=== PATIENT | female | born 1965 | race American Indian/Alaskan Native ===

== ENCOUNTER 2017-11-10 05:11 | Inpatient (IN) | payer OTHER ==
--- NOTE | 2017-11-10 05:21 | C.PDOC ---
History Of Present Illness Patient presents to the ER with EMS agitated and combative. Patient states she did 25 bags of heroin yesterday but none today. Patient had to be medicated for her safety and safety of staff. No further Hx could be obtained. Time Seen by Provider: 11/10/17 05:21 Chief Complaint (Nursing): Substance Abuse History Per: Patient, EMS History/Exam Limitations: clinical condition Onset/Duration Of Symptoms: Hrs Current Symptoms Are (Timing): Still Present Suicide/Self Injury Attempted (Context): None Associated Symptoms: Anger, Agitation, Other (Combative). denies: Depression, Suicidal Thoughts, Suicidal Plan Involuntary Hold By: None Recent travel outside of the [place]: No Past Medical History Reviewed: Historical Data, Nursing Documentation, Vital Signs Vital Signs: Last Vital Signs Temp 98.0 F 11/10/17 05:17 Pulse 54 L 11/10/17 05:17 Resp 19 11/10/17 05:17 BP 190/103 H 11/10/17 05:17 Pulse Ox 98 11/10/17 05:37 - Medical History PMH: No Chronic Diseases Family History: States: No Known Family Hx Review Of Systems Review Of Systems: ROS cannot be obtained secondary to pt's inabilty to answer questions. Physical Exam - Physical Exam Appears: Non-toxic, Combative, Other (Agitated) Skin: Warm, Dry Head: Normacephalic Oral Mucosa: Moist Teeth: Edentulous Chest: Symmetrical, No Tenderness Cardiovascular: Rhythm Regular Respiratory: No Rales, No Rhonchi, No Wheezing Gastrointestinal/Abdominal: Soft, No Tenderness Neurological/Psych: Oriented x3 ED Course And Treatment - Laboratory Results Result Diagrams: 11/10/17 05:43 11/10/17 05:43 O2 Sat by Pulse Oximetry: 98 Pulse Ox Interpretation: Normal Progress Note: Patient medicated for her safety as well as the safety of the ED staff. Pt noticed to self induce vomiting Disposition Counseled Patient/Family Regarding: Studies Performed, Diagnosis - Disposition Disposition Time: 05:21 Condition: UNKNOWN Forms: [facility] (Sami) - Clinical Impression Clinical Impression: Drug abuse - Scribe Statement The provider has reviewed the documentation as recorded by the Scribe Stevie Espinal All medical record entries made by the Scribe were at my direction and personally dictated by me. I have reviewed the chart and agree that the record accurately reflects my personal performance of the history, physical exam, medical decision making, and the department course for this patient. I have also personally directed, reviewed, and agree with the discharge instructions and disposition. Physician Patient Turnover Patient Signed Over To: Eligio Montoya DO Handoff Comments: pending labs, re-eval and disposition
[2017-11-10] MEDS ORDERED: DiphenhydrAMINE 50 mg/ml Inj ONE (05:22)
[2017-11-10] MEDS ORDERED: DiphenhydrAMINE 50 mg/ml Inj IM STA (05:32)
[2017-11-10 05:46] LABS: BASO % 0.4 % (0.0-2.0); EOS # 0.1 K/uL (0.0-0.7); EOS % 0.8 % (0.0-4.0); LYMPH # 1.5 K/uL (1.0-4.3); LYMPH % 17.6 % (20.0-40.0); MEAN CELL VOLUME 93.1 fL (81.0-99.0); MEAN CORPUSCULAR HEMOGLOBIN 31.8 pg (27.0-31.0); MEAN CORPUSCULAR HGB CONC 34.1 g/dL (33.0-37.0); MEAN PLATELET VOLUME 8.7 fL (7.2-11.7); MONO # 0.2 K/uL (0.0-0.8); MONO % 2.2 % (0.0-10.0); NEUT # 6.6 K/uL (1.8-7.0); RBC 5.04 Mil/uL (3.80-5.20); WHITE BLOOD COUNT 8.4 K/uL (4.8-10.8)
[2017-11-10 06:15] LABS: ALBUMIN 4.1 g/dL (3.5-5.0); CALCIUM 8.6 mg/dl (8.6-10.4); GFR AFRICAN-AMERICAN > 60; GFR NON-AFRICAN AMERICAN 58
[2017-11-10 06:30] LABS: ALT/SGPT 13 U/L (9-52); AST/SGOT 41 U/L (14-36); BLOOD UREA NITROGEN 12 mg/dL (7-17)
[2017-11-10] MEDS ORDERED: Sodium Chloride 0.9% 1,000 ML IV ONE (06:44)
[2017-11-10] MEDS ORDERED: Sodium Chloride 0.9% 1,000 ML ONE (06:47)
[2017-11-10 07:44] LABS: BARBITURATES, UR NEGATIVE (NEGATIVE); BENZODIAZEPINES, UR NEGATIVE (NEGATIVE); PHENCYCLIDINE, UR NEGATIVE (NEGATIVE)
[2017-11-10 08:01] LABS: SQUAMOUS EPITHIAL 1 /hpf (0-5); URINE AMORPHOUS SEDIMENT RARE /ul (<OCC); URINE BACTERIA OCC (<OCC); URINE BILIRUBIN NEGATIVE (NEGATIVE); URINE BLOOD NEGATIVE (NEGATIVE); URINE CLARITY Hazy (Clear); URINE COLOR Yellow (YELLOW); URINE GLUCOSE (UA) 1+ mg/dL (Normal); URINE LEUKOCYTE ESTERASE NEG Leu/uL (Negative); URINE NITRATE NEGATIVE (NEGATIVE); URINE PROTEIN 2+ mg/dL (NEGATIVE); URINE UROBILINOGEN NORMAL mg/dL (0.2-1.0)
[2017-11-10 08:10] LABS: OPIATES, UR POSITIVE (NEGATIVE)
--- NOTE | 2017-11-10 09:18 | CP.PCM.HP ---
<Inez Yeung - Last Filed: 11/10/17 12:56> History of Present Illness - History of Present Illness History of Present Illness: Patient is a 51 year old female with past medical history of substance abuse, questionable seizure d/o was brought to the ER for evaluation. Per ED triage note, patient took 25 bags of heroin yesterday and is currently withdrawing. When patient was seen in the ER she was agitated/yelling, at times tearful, and not answering questions appropriately. Patient was uncooperative, states that she is seeing monsters. Per nursing, while in the ED, patient had 2 episodes of NBNB vomiting. HPI and ROS not obtained at this time. We have no prior records of this patient in the EMR. ED course: Geodon 10mg, Benadryl 25mg IM, Ativan 2mg IVP x 2, Reglan 10mg IVP, Zofran 4mg IVP, Clonidine 0.1mg x 1, Methadone 20mg, NS bolus Allergies: Unobtainable Medical History: Questionable history of seizure disorder Medications: States that she takes Dilantin 300mg daily, patient unable to provide us with her pharmacy Surgical History: Unobtainable Social History: Heroin user (snorts and injects), last use was yesterday, used 25 bags, Denies alcohol/tobacco use; possibly homeless? Family History: Unobtainable Present on Admission - Present on Admission Any Indicators Present on Admission: No Review of Systems - Review of Systems Review of Systems: Unable to obtain due to patients current condition Past Patient History - Infectious Disease Hx of Infectious Diseases: None - Past Social History Smoking Status: Unknown If Ever Smoked - PSYCHIATRIC Hx Substance Use: Yes - SURGICAL HISTORY Hx Surgeries: (UNOBTAINABLE) Meds Allergies/Adverse Reactions: Allergies Allergy/AdvReac Type Severity Reaction Status Date / Time Unobtainable Allergy Verified 11/10/17 05:22 Physical Exam - Constitutional Appears: Older Than Stated Age, Agitated, Confused - Head Exam Head Exam: ATRAUMATIC, NORMAL INSPECTION - Eye Exam Eye Exam: EOMI, Normal appearance - Respiratory Exam Respiratory Exam: Clear to Auscultation Bilateral, NORMAL BREATHING PATTERN. absent: Rhonchi, Wheezes - Cardiovascular Exam Cardiovascular Exam: REGULAR RHYTHM, +S1, +S2. absent: Systolic Murmur - GI/Abdominal Exam GI & Abdominal Exam: Normal Bowel Sounds, Soft. absent: Guarding, Rebound, Rigid, Tenderness - Extremities Exam Extremities exam: Positive for: normal inspection, pedal pulses present. Negative for: calf tenderness - Neurological Exam Neurological exam: Alert - Psychiatric Exam Psychiatric exam: Agitated, Anxious, Manic - Skin Skin Exam: Dry, Normal Color, Warm Results - Vital Signs Recent Vital Signs: Last Vital Signs Temp 98.0 F 11/10/17 05:17 Pulse 89 11/10/17 09:13 Resp 14 11/10/17 09:13 BP 193/116 H 11/10/17 09:13 Pulse Ox 97 11/10/17 09:13 - Labs Result Diagrams: 11/10/17 05:43 11/10/17 05:43 Labs: Laboratory Results - last 24 hr 11/10/17 11/10/17 11/10/17 05:43 05:43 07:24 WBC 8.4 RBC 5.04 Hgb 16.0 Hct 46.9 MCV 93.1 MCH 31.8 H MCHC 34.1 RDW 14.0 Plt Count 234 MPV 8.7 Neut % (Auto) 79.0 H Lymph % (Auto) 17.6 L [place] % (Auto) 2.2 Eos % (Auto) 0.8 Baso % (Auto) 0.4 Neut # 6.6 Lymph # 1.5 [place] # 0.2 Eos # 0.1 Baso # 0.0 Sodium 138 Potassium 4.6 Chloride 109 H Carbon Dioxide 21 L Anion Gap 13 BUN 12 Creatinine 1.0 Est GFR ( Amer) > 60 Est GFR (Non-Af Amer) 58 Random Glucose 164 H Calcium 8.6 Total Bilirubin 0.8 AST 41 H ALT 13 Alkaline Phosphatase 95 Total Protein 8.2 Albumin 4.1 Globulin 4.1 H Albumin/Globulin Ratio 1.0 Urine Color Yellow Urine Clarity Hazy Urine pH 8.0 Ur Specific Enigma 1.021 Urine Protein 2+ H Urine Glucose (UA) 1+ Urine Ketones Negative Urine Blood Negative Urine Nitrate Negative Urine Bilirubin Negative Urine Urobilinogen Normal Ur Leukocyte Esterase Neg Urine WBC (Auto) 4 Urine RBC (Auto) 8 H Ur Squamous Epith Cells 1 Amorphous Sediment Rare H Urine Bacteria Occ H Urine Opiates Screen Urine Methadone Screen Ur Barbiturates Screen Ur Phencyclidine Scrn Ur Amphetamines Screen U Benzodiazepines Scrn U Oth Cocaine Metabols U Cannabinoids Screen Alcohol, Quantitative < 10 11/10/17 07:24 WBC RBC Hgb Hct MCV MCH MCHC RDW Plt Count MPV Neut % (Auto) Lymph % (Auto) [place] % (Auto) Eos % (Auto) Baso % (Auto) Neut # Lymph # [place] # Eos # Baso # Sodium Potassium Chloride Carbon Dioxide Anion Gap BUN Creatinine Est GFR ( Amer) Est GFR (Non-Af Amer) Random Glucose Calcium Total Bilirubin AST ALT Alkaline Phosphatase Total Protein Albumin Globulin Albumin/Globulin Ratio Urine Color Urine Clarity Urine pH Ur Specific Enigma Urine Protein Urine Glucose (UA) Urine Ketones Urine Blood Urine Nitrate Urine Bilirubin Urine Urobilinogen Ur Leukocyte Esterase Urine WBC (Auto) Urine RBC (Auto) Ur Squamous Epith Cells Amorphous Sediment Urine Bacteria Urine Opiates Screen Positive H Urine Methadone Screen Negative Ur Barbiturates Screen Negative Ur Phencyclidine Scrn Negative Ur Amphetamines Screen Negative U Benzodiazepines Scrn Negative U Oth Cocaine Metabols Negative U Cannabinoids Screen Negative Alcohol, Quantitative Assessment & Plan - Assessment and Plan (Free Text) Assessment: 1. Opioid Withdrawal -Will admit to telemetry -UTOX positive for opioids, Alcohol level <10 -Diet: NPO except medications -Received Methadone 20mg x 1 dose in the ED -Clonidine 0.1mg PO QID -Ativan 2mg Q4H IVP prn agitation -Placed on 1:1 observation -Psych consulted, f/u recommendations 2. Acute Pili -Possible history of schizophrenia or bipolar disorder -Psych consulted, f/u recommendations 3. Hypertension -Patient with elevated BPs with systolic BPs 140-190s -Clonidine 0.1mg QID -Hydralazine 10mg IVP Q6H prn -May be elevated possibly to withdrawal -Continue to monitor 4. Possible Seizure disorder -Patient states that she takes Dilantin 300mg daily -Patient is currently unreliable and cannot confirm medications with pharmacy -Will monitor at this time -Seizure precautions -Aspiration precautions Prophylactic Measures Protonix 40mg IVP daily Lovenox 40mg SC daily <Dino Lala - Last Filed: 11/10/17 13:39> Results - Vital Signs Recent Vital Signs: Last Vital Signs Temp 98 F 11/10/17 12:37 Pulse 78 11/10/17 12:37 Resp 22 11/10/17 11:59 BP 169/109 H 11/10/17 12:37 Pulse Ox 97 11/10/17 12:37 - Labs Result Diagrams: 11/10/17 05:43 11/10/17 05:43 Labs: Laboratory Results - last 24 hr 11/10/17 11/10/17 11/10/17 05:43 05:43 07:24 WBC 8.4 RBC 5.04 Hgb 16.0 Hct 46.9 MCV 93.1 MCH 31.8 H MCHC 34.1 RDW 14.0 Plt Count 234 MPV 8.7 Neut % (Auto) 79.0 H Lymph % (Auto) 17.6 L [place] % (Auto) 2.2 Eos % (Auto) 0.8 Baso % (Auto) 0.4 Neut # 6.6 Lymph # 1.5 [place] # 0.2 Eos # 0.1 Baso # 0.0 Sodium 138 Potassium 4.6 Chloride 109 H Carbon Dioxide 21 L Anion Gap 13 BUN 12 Creatinine 1.0 Est GFR ( Amer) > 60 Est GFR (Non-Af Amer) 58 Random Glucose 164 H Calcium 8.6 Total Bilirubin 0.8 AST 41 H ALT 13 Alkaline Phosphatase 95 Total Protein 8.2 Albumin 4.1 Globulin 4.1 H Albumin/Globulin Ratio 1.0 Urine Color Yellow Urine Clarity Hazy Urine pH 8.0 Ur Specific Enigma 1.021 Urine Protein 2+ H Urine Glucose (UA) 1+ Urine Ketones Negative Urine Blood Negative Urine Nitrate Negative Urine Bilirubin Negative Urine Urobilinogen Normal Ur Leukocyte Esterase Neg Urine WBC (Auto) 4 Urine RBC (Auto) 8 H Ur Squamous Epith Cells 1 Amorphous Sediment Rare H Urine Bacteria Occ H Urine Opiates Screen Urine Methadone Screen Ur Barbiturates Screen Ur Phencyclidine Scrn Ur Amphetamines Screen U Benzodiazepines Scrn U Oth Cocaine Metabols U Cannabinoids Screen Alcohol, Quantitative < 10 11/10/17 07:24 WBC RBC Hgb Hct MCV MCH MCHC RDW Plt Count MPV Neut % (Auto) Lymph % (Auto) [place] % (Auto) Eos % (Auto) Baso % (Auto) Neut # Lymph # [place] # Eos # Baso # Sodium Potassium Chloride Carbon Dioxide Anion Gap BUN Creatinine Est GFR ( Amer) Est GFR (Non-Af Amer) Random Glucose Calcium Total Bilirubin AST ALT Alkaline Phosphatase Total Protein Albumin Globulin Albumin/Globulin Ratio Urine Color Urine Clarity Urine pH Ur Specific Enigma Urine Protein Urine Glucose (UA) Urine Ketones Urine Blood Urine Nitrate Urine Bilirubin Urine Urobilinogen Ur Leukocyte Esterase Urine WBC (Auto) Urine RBC (Auto) Ur Squamous Epith Cells Amorphous Sediment Urine Bacteria Urine Opiates Screen Positive H Urine Methadone Screen Negative Ur Barbiturates Screen Negative Ur Phencyclidine Scrn Negative Ur Amphetamines Screen Negative U Benzodiazepines Scrn Negative U Oth Cocaine Metabols Negative U Cannabinoids Screen Negative Alcohol, Quantitative Attending/Attestation - Attestation I have personally seen and examined this patient.: Yes I have fully participated in the care of the patient.: Yes I have reviewed all pertinent clinical information: Yes Notes (Text): 11/10/17 13:33 Medical attending: Patient was seen and examined by me. She was in ER bed 4 and I saw with the residents The patient was non cooperative when we saw here. There was no description of where she is from or where she was picked up at. The ER nursing suspect patient maybe homeless however. When we saw her she was already on 1 to 1 observation. The patient reported 25 bags of heroine. She could not say if she snorted, or used IVDA. A UDS suggest patient is using only heroine. The patient was not AAO x 3. She did not know where she was at. She was awake and followed some commands however at one point in her bed rolled over and stopped cooperating during the exam. Because of the very elevated BP, clonodine was started as this would also help with any potential withdrawls. She will be going to telemetry with 1 to 1 observation, she will also need a psychiatry evaluation thank you Dino Lala
[2017-11-10] MEDS ORDERED: Aluminum Hydroxide/Magnesium Hydroxide Susp (30 mL) PO PRN (09:58)
[2017-11-10] MEDS: Enoxaparin 40 mg Syringe SC SCH (10:41)
--- NOTE | 2017-11-10 11:51 | PCM.PSYCH ---
Initial Psychiatric Evaluation - Initial Psychiatric Evaluation Chief Complaint (in patient's own words): " Altered mental status change, agitation and emotional" History of Present Illness and Precipitating Events: The patient was seen, the chart was reviewed and the case was discussed Patient is a 51 year old female with past medical history of substance abuse, questionable seizure d/o was brought to the ER for evaluation by EMS after she was found on the street to be agitated and combative. Psychiatric consult was placed for behavior changes and history of substance abuse. During the encounter , patient states she did 25 bags of heroin yesterday and unsure about today. Patient was unable to answer questions in details as she was mildly agitated, confused, easily distracted and uncooperative. Per nursing, while in the ED, patient had 2 episodes of vomiting. Patient admits to visual hallucination Past psych hx: unable to obtain due to uncooperative Medical History: Questionable history of seizure disorder Social History: Heroin user (snorts and injects), last use was yesterday, used 25 bags, Denies alcohol/tobacco use; possibly homeless? Family Psych History: Unobtainable Current Medications: Active Medications Generic Name Dose Route Start Last Admin Trade Name Freq PRN Reason Stop Dose Admin Al Hydrox/Mg Hydrox/Simethicone 30 ml 11/10/17 09:58 Maalox 30 Ml PO TID PRN Indigestion / Heartburn Clonidine HCl 0.1 mg 11/10/17 15:00 Catapres PO QID BRIANDA Enoxaparin Sodium 40 mg 11/10/17 10:00 11/10/17 10:41 Lovenox SC 40 mg DAILY BRIANDA Administration Hydralazine HCl 10 mg 11/10/17 09:34 11/10/17 11:46 Apresoline IVP 10 mg Q6H PRN Administration Systolic Blood Pressure Loperamide HCl 2 mg 11/10/17 09:58 Imodium PO Q8 PRN Diarrhea Lorazepam 2 mg 11/10/17 09:38 Ativan IVP Q4H PRN Agitation Metoclopramide HCl 10 mg 11/10/17 09:36 Reglan IVP Q6H PRN Nausea/Vomiting Ondansetron HCl 4 mg 11/10/17 09:37 Zofran Inj IVP Q4H PRN Nausea/Vomiting Pantoprazole Sodium 40 mg 11/10/17 10:00 11/10/17 10:41 Protonix Inj IVP 40 mg DAILY BRIANDA Administration Trazodone HCl 25 mg 11/10/17 22:00 Desyrel PO HS BRIANDA Past Psychiatric History - Past Psychiatric History Pertinent Medical Hx (Current Medical&Sleep Prob, Allergies): Allergies Allergy/AdvReac Type Severity Reaction Status Date / Time Unobtainable Allergy Verified 11/10/17 05:22 Unobtainable 11/10/17 Review of Systems - Genitourinary Genitourinary: Urinary Frequency - Neurological Neurological: Behavioral Changes, Confusion - Psychiatric Psychiatric: Behavioral Changes, Confusion, Difficulty Concentrating, Mood Swings, Visual Hallucinations Mental Status Examination - Personal Presentation Personal Presentation: Looks stated age - Affect Affect: Constricted - Motor Activity Motor Activity: Violent, Psychomotor Agitation - Speech Speech: Disorganized - Mood Mood: Anxious - Formal Thought Process Formal Thought Process: Hallucinations, Loosening of associations - Hallucinations/Delusions Hallucinations: Visual - Obsessions/Compulsions Obsessions: No Compulsions: No - Cognitive Functions Sensorium: Drowsy Attention/Concentration: Easily distracted Estimate of Intelligence: Below average Judgement: Imparied, as evidence by: Lack of insight into illness - Risk Risk: Withdrawal - Limitations Limitations: Living alone DSM 5 DX - DSM 5 DSM 5 Diagnosis: Opioid withdrawal Opioid use disorder - Recommended/Plan of Treatment Treatment Recommendations and Plan of Treatment: Ativan Loperamide 2mg PO Q8 prn Clonidine 0.1mg PO QID As needed medications Psych education Supportive psychotherapy and [place] Encourage MAT Referral to IOP and Self-help groups 34 mins Prognosis: Fair with treatment - Smoking Cessation Smoking Cessation Initiated: No
--- NOTE | 2017-11-10 16:06 | CP.PCM.PN ---
Subjective - Date & Time of Evaluation Date of Evaluation: 11/10/17 Time of Evaluation: 15:50 - Subjective Subjective: A code star was called on this patient at approx 1550. Nurse Felicia witnessed this patient walk out of her room and throw herself on the ground. Per witness, it was a controlled fall, she landed on her right hip and at no point did she hit her head. The patient is here for heroin withdrawal and was hysterical/ crying upon interview/exam. She was repeatedly saying "mommy". No bruises were seen on her right hip area and no bruises/lesions were seen on her scalp. A few minutes later she got up off the ground without assistance and walked to her bed without difficulty. A few minutes later she seemed to be asleep, and woke up minutes after and was again crying/hysterical. Ativan 2mg was given via IV. Moments later she seemed to be asleep again. Her physical exam was benign. An XRAY or CT head is not warranted. Objective - Vital Signs/Intake and Output Vital Signs (last 24 hours): Temp Pulse Resp BP Pulse Ox 98 F 78 22 169/109 H 97 11/10/17 12:37 11/10/17 12:37 11/10/17 11:59 11/10/17 12:37 11/10/17 12:37 - Medications Medications: Current Medications Al Hydrox/Mg Hydrox/Simethicone (Maalox 30 Ml) 30 ml PO TID PRN PRN Reason: Indigestion / Heartburn Clonidine HCl (Catapres) 0.1 mg PO QID [facility] Last Admin: 11/10/17 14:42 Dose: Not Given Enoxaparin Sodium (Lovenox) 40 mg SC DAILY [facility] Last Admin: 11/10/17 10:41 Dose: 40 mg Hydralazine HCl (Apresoline) 10 mg IVP Q6H PRN PRN Reason: Systolic Blood Pressure Last Admin: 11/10/17 11:46 Dose: 10 mg Loperamide HCl (Imodium) 2 mg PO Q8 PRN PRN Reason: Diarrhea Lorazepam (Ativan) 2 mg IVP Q4H PRN PRN Reason: Agitation Metoclopramide HCl (Reglan) 10 mg IVP Q6H PRN PRN Reason: Nausea/Vomiting Ondansetron HCl (Zofran Inj) 4 mg IVP Q4H PRN PRN Reason: Nausea/Vomiting Pantoprazole Sodium (Protonix Inj) 40 mg IVP DAILY [facility] Last Admin: 11/10/17 10:41 Dose: 40 mg Pneumococcal Polyvalent Vaccine (Pneumovax 23 Vaccine) 0.5 ml IM .ONCE ONE Stop: 11/13/17 10:01 Trazodone HCl (Desyrel) 25 mg PO HS BRIANDA - Labs Labs: 11/10/17 05:43 11/10/17 05:43 - Constitutional Appears: Agitated - Head Exam Head Exam: ATRAUMATIC, NORMAL INSPECTION, NORMOCEPHALIC - Eye Exam Eye Exam: EOMI - Cardiovascular Exam Cardiovascular Exam: REGULAR RHYTHM, +S1, +S2 - Extremities Exam Extremities Exam: Full ROM, Normal Inspection. absent: Joint Swelling, Tenderness - Neurological Exam Neurological Exam: Normal Gait
[2017-11-10] MEDS ORDERED: traZODone 25 mg Tab PO SCH (22:00)
--- NOTE | 2017-11-11 08:46 | CP.PCM.PN ---
<Inez Yeung - Last Filed: 11/11/17 16:08> Subjective - Date & Time of Evaluation Date of Evaluation: 11/11/17 Time of Evaluation: 08:45 - Subjective Subjective: Medicine Progress Note: Hospitalist Service Patient seen and examined at bedside. Per nursing, patient IV access was occluded. IV was reinserted this morning. At that time patient was having a headache and stated that she was embarrassed by her current condition. Later this morning patient became agitated, was asking for juice. Patient threw pitcher of water at her 1:1. Was able to calm patient down after talking to her. Denies dizziness, cp, palpitations, sob, abdominal pain, urinary symptoms. changes in bowel habits. Objective - Vital Signs/Intake and Output Vital Signs (last 24 hours): Temp Pulse Resp BP Pulse Ox 99.0 F 88 20 148/102 H 96 11/10/17 21:00 11/11/17 04:00 11/10/17 21:00 11/11/17 04:00 11/10/17 21:00 Intake and Output: 11/11/17 11/11/17 06:59 18:59 Intake Total 240 Balance 240 - Medications Medications: Current Medications Al Hydrox/Mg Hydrox/Simethicone (Maalox 30 Ml) 30 ml PO TID PRN PRN Reason: Indigestion / Heartburn Clonidine HCl (Catapres) 0.1 mg PO QID [facility] Last Admin: 11/10/17 21:43 Dose: 0.1 mg Enoxaparin Sodium (Lovenox) 40 mg SC DAILY [facility] Last Admin: 11/10/17 10:41 Dose: 40 mg Hydralazine HCl (Apresoline) 10 mg IVP Q6H PRN PRN Reason: Systolic Blood Pressure Last Admin: 11/11/17 08:18 Dose: 10 mg Loperamide HCl (Imodium) 2 mg PO Q8 PRN PRN Reason: Diarrhea Lorazepam (Ativan) 2 mg IVP Q4H PRN PRN Reason: Agitation Last Admin: 11/11/17 08:21 Dose: 2 mg Metoclopramide HCl (Reglan) 10 mg IVP Q6H PRN PRN Reason: Nausea/Vomiting Ondansetron HCl (Zofran Inj) 4 mg IVP Q4H PRN PRN Reason: Nausea/Vomiting Pantoprazole Sodium (Protonix Inj) 40 mg IVP DAILY [facility] Last Admin: 11/10/17 10:41 Dose: 40 mg Pneumococcal Polyvalent Vaccine (Pneumovax 23 Vaccine) 0.5 ml IM .ONCE ONE Stop: 11/13/17 10:01 Trazodone HCl (Desyrel) 25 mg PO HS [facility] Last Admin: 11/10/17 21:41 Dose: 25 mg - Labs Labs: 11/10/17 05:43 11/10/17 05:43 - Constitutional Appears: Well, No Acute Distress - Head Exam Head Exam: ATRAUMATIC, NORMAL INSPECTION - Eye Exam Eye Exam: EOMI, Normal appearance - ENT Exam ENT Exam: Mucous Membranes Moist - Neck Exam Neck Exam: Full ROM - Respiratory Exam Respiratory Exam: Clear to Ausculation Bilateral, NORMAL BREATHING PATTERN. absent: Rales, Rhonchi, Wheezes - Cardiovascular Exam Cardiovascular Exam: REGULAR RHYTHM, +S1, +S2 - GI/Abdominal Exam GI & Abdominal Exam: Soft. absent: Guarding, Rigid, Tenderness - Extremities Exam Extremities Exam: Normal Inspection. absent: Calf Tenderness - Neurological Exam Neurological Exam: Alert, Awake - Psychiatric Exam Psychiatric exam: Agitated, Anxious - Skin Skin Exam: Normal Color, Warm Assessment and Plan - Assessment and Plan (Free Text) Assessment: 1. Opioid Use disorder/Opioid Withdrawal -Monitor on telemetry -UTOX positive for opioids, Alcohol level <10 -Diet advanced to regular -Methadone 20mg x 1 dose given today -Clonidine discontinued as patient was having low BPs -Ativan 2mg Q4H IVP prn agitation -Placed on 1:1 observation -Psych consulted, f/u recommendations 2. Acute Pili -Psych consulted, f/u recommendations 3. Hypertension -Patient with elevated BPs with systolic BPs 140-190s on admission -ASSOCIATE CURATOR was called today for hypotension SBP 60s, patient was asymptomatic -NS bolus x 2 -Clonidine discontinued -Hydralazine discontinued -Continue to monitor 4. Possible Seizure disorder -Patient states that she takes Dilantin 300mg daily -Patient is currently unreliable and cannot confirm medications with pharmacy -Will monitor at this time -Seizure precautions -Aspiration precautions Prophylactic Measures Protonix 40mg IVP daily Lovenox 40mg SC daily <Dino Lala - Last Filed: 11/11/17 16:21> Objective - Vital Signs/Intake and Output Vital Signs (last 24 hours): Temp Pulse Resp BP Pulse Ox 98.1 F 96 H 20 148/104 H 96 11/11/17 07:20 11/11/17 09:40 11/11/17 07:20 11/11/17 09:40 11/11/17 07:20 Intake and Output: 11/11/17 11/11/17 06:59 18:59 Intake Total 240 Balance 240 - Medications Medications: Current Medications Al Hydrox/Mg Hydrox/Simethicone (Maalox 30 Ml) 30 ml PO TID PRN PRN Reason: Indigestion / Heartburn Enoxaparin Sodium (Lovenox) 40 mg SC DAILY [facility] Last Admin: 11/11/17 09:14 Dose: Not Given Hydralazine HCl (Apresoline) 10 mg IVP Q6H PRN PRN Reason: Systolic Blood Pressure Last Admin: 11/11/17 08:18 Dose: 10 mg Sodium Chloride (Sodium Chloride 0.9%) 1,000 mls @ 1,000 mls/hr IV .Q1H ONE Stop: 11/11/17 16:47 Last Admin: 11/11/17 15:56 Dose: 1,000 mls/hr Loperamide HCl (Imodium) 2 mg PO Q8 PRN PRN Reason: Diarrhea Metoclopramide HCl (Reglan) 10 mg IVP Q6H PRN PRN Reason: Nausea/Vomiting Ondansetron HCl (Zofran Inj) 4 mg IVP Q4H PRN PRN Reason: Nausea/Vomiting Pantoprazole Sodium (Protonix Inj) 40 mg IVP DAILY [facility] Last Admin: 11/11/17 09:10 Dose: 40 mg Pneumococcal Polyvalent Vaccine (Pneumovax 23 Vaccine) 0.5 ml IM .ONCE ONE Stop: 11/13/17 10:01 - Labs Labs: 11/11/17 11:49 11/11/17 11:49 Attending/Attestation - Attestation I have personally seen and examined this patient.: Yes I have fully participated in the care of the patient.: Yes I have reviewed all pertinent clinical information, including history, physical exam and plan: Yes Notes (Text): 11/11/17 16:21 Medical attending: Patient was seen and examined by me, agrees the above note by the medical front desk coordinator. Earlier the morning the patient took a pitcher of water and through the water at one of the clinical partners is working with her in the room. She had to be redirected. In the morning she had a lot of high blood pressure readings. She was quite agitated in the morning we gave her a one-time dose of methadone. Later on in the afternoon she had an ASSOCIATE CURATOR called after her blood pressure was noted to be low I used a manual cuff and her systolic was about 86 the diastolic was about 50 on both attempts. I gave instructions to hold up on the Ativan and the clonidine at this time. During this ASSOCIATE CURATOR she was awake and alert, however very agitated and very combative. A few moments after this she walked into the hallway yelling and screaming. She then sat down in the chairs in the hallway outside of her room. She was very upset that she did not have her own personal belongings with her. Thank you very much, Dino Lala
[2017-11-11] MEDS: Enoxaparin 40 mg Syringe SC SCH (09:14)
[2017-11-11 12:13] LABS: BASO % 0.5 % (0.0-2.0); EOS # 0.1 K/uL (0.0-0.7); EOS % 0.5 % (0.0-4.0); HEMOGLOBIN 16.2 g/dL (11.0-16.0); LYMPH # 2.1 K/uL (1.0-4.3); LYMPH % 21.5 % (20.0-40.0); MEAN CELL VOLUME 91.4 fL (81.0-99.0); MEAN CORPUSCULAR HEMOGLOBIN 31.7 pg (27.0-31.0); MEAN CORPUSCULAR HGB CONC 34.6 g/dL (33.0-37.0); MEAN PLATELET VOLUME 8.5 fL (7.2-11.7); MONO # 0.6 K/uL (0.0-0.8); NEUT # 7.1 K/uL (1.8-7.0); NEUT % 71.5 % (50.0-75.0); NRBC % 0.1 % (0.0-2.0); RBC 5.13 Mil/uL (3.80-5.20); RED CELL DISTRIBUTION WIDTH 13.6 % (11.5-14.5); WHITE BLOOD COUNT 9.9 K/uL (4.8-10.8)
[2017-11-11 12:35] LABS: ALT/SGPT 15 U/L (9-52); AST/SGOT 37 U/L (14-36); BLOOD UREA NITROGEN 10 mg/dL (7-17); CALCIUM 8.9 mg/dl (8.6-10.4); GFR AFRICAN-AMERICAN > 60; GFR NON-AFRICAN AMERICAN 58; MAGNESIUM 1.9 mg/dL (1.6-2.3)
[2017-11-11] MEDS ORDERED: Sodium Chloride 0.9% 1,000 ML IV ONE (15:48)
--- NOTE | 2017-11-11 16:50 | PCM.PYCHPN ---
Psychiatric Progress Note - Psychiatric Progress Note Patient seen today, length of contact: 15 minutes Patient Chief Complaint: "I am okay" Medical Problems: Patient seen and chart reviewed and discussed with staff Patient is compliant with medications and denies any side effects. Symptoms are improving with treatment but need more time to stabilize. Patient still remains very combative, emotional and agitated. CUSTOMER SERVICER called for hypotension , which was managed by the medical team medication changes as needed for agitation Support and psychoeducation given. After care discussed DSM 5 Symptoms Update: R/o Delirium Opioid use d/o severe Opioid withdrawal Medication Change: Yes (Haldol 2mg PO prn and Benadryl 25mg PO PRN ) Medical Record Reviewed: Yes Mental Status Examination - Cognitive Function Orientation: Person Memory: Intact Attention: Poor Concentration: Poor Fund of Knowledge: Poor - Mood Mood: Anxious - Affect Affect: Constricted - Speech Speech: Slurred, Loud - Formal Thought Process Formal Thought Process: Hallucinations, Loosening of associations - Suicidal Ideation Suicidal Ideation: No - Homicidal Ideation Homicidal Ideation: No Goal/Treatment Plan - Goal/Treatment Plan Progress Toward Problem(s) and Goals/Treatment Plan: Ativan Loperamide 2mg PO Q8 prn Clonidine 0.1mg PO QID Halodol 2mg PO q6 prn and Benadryl 25mg PO Q6 prn for agitation and combative behavior. Hold these medications if SBP< 90 mmhg As needed medications Psych education Supportive psychotherapy and DE Encourage MAT Referral to [facility] and Self-help groups
--- NOTE | 2017-11-11 18:27 | PCM.RRT ---
<Gamal,Inez - Last Filed: 11/11/17 19:39> LASER PRINTING OPERATOR Nurses Assessment - Situation Date: 11/11/17 Time LASER PRINTING OPERATOR was called: 04:48 LASER PRINTING OPERATOR Location:: T Med/Surg Room Number: 656-B LASER PRINTING OPERATOR Reason for Call: Hypotension LASER PRINTING OPERATOR Called By: RN - Neurological Status (Select all that apply): Alert, Responsive, Oriented, Verbal, Follows Commands - Respiratory Oxygen Delivery Method: Room Air - Constitutional Appears: Well, No Acute Distress - Head Head Exam: ATRAUMATIC, NORMAL INSPECTION - Eyes Eye Exam: EOMI, Normal appearance - Respiratory Exam Respiratory Exam: Clear to Ausculation Bilateral, NORMAL BREATHING PATTERN. absent: Rales, Rhonchi, Wheezes - Cardiovascular Exam Cardiovascular Exam: REGULAR RHYTHM, +S1, +S2 - GI/Abdominal Exam GI & Abdominal Exam: Soft, Normal Bowel Sounds. absent: Guarding, Rigid, Tenderness - Neurological Exam Neurological Exam: Alert, Awake, Normal Gait, Oriented x3 - Extremities Exam Extremities Exam: Normal Inspection Plan - Assessment of Findings&Treatment Plan Patient is a 51 year old female with past medical history of substance abuse, admitted for opioid withdrawal. At 14:30, patient was eating her lunch. BP at that time was 66/50, patient was asymptomatic, order for bolus of NS was given. Rapid response was called at 2:48pm for hypotension. Patient was found to have a BP of 73/43. At that time the patient was asymptomatic, agitated, and looking for her belongings. Bolus of NS was infusing at that time. Manual BP was checked by Dr Lala, systolic BP was in 80s. Catapres, Trazodone and Ativan were discontinued. Order was placed to given second bolus of NS. <Dino Lala - Last Filed: 11/12/17 10:42> Attending/Attestation - Attestation I have personally seen and examined this patient.: Yes I have fully participated in the care of the patient.: Yes I have reviewed all pertinent clinical information, including history, physical exam and plan: Yes Notes (Text): Medical attending: Patient had an LASER PRINTING OPERATOR called in the afternoon - her BP was noted to be low in the 70s, when we came there she was extremely upset and agitated with us and security had to be called. Early in the day had thrown water at the staff. I checked a manually cuff and the systolic BP was in the 80s She denied having dizziness or weakness - she reportedly did not have her belongings and therefore was usept. She was placed on IVF - I did not place this earlier since I was worried she'd tear the lines out. But later in the day she was walking in the hallway and pushing the pole and pumps with her. We held the ativan, clonodine, and trazadone orders. She also had methadone earlier in the day. At this time we will need to continue the to thank you Dino Lala
[2017-11-11] MEDS ORDERED: Sodium Chloride 0.9% 250 ML IV ONE (19:55)
[2017-11-11] MEDS: Sodium Chloride 0.9% 1,000 ML IV SCH (22:10)
[2017-11-12] MEDS ORDERED: guaiFENesin 100 mg/5 ml Syrup UD PO ONE (00:13)
[2017-11-12] MEDS: Sodium Chloride 0.9% 1,000 ML IV SCH ×2 (06:23→22:41)
--- NOTE | 2017-11-12 07:41 | CP.PCM.PN ---
<Martha Vidal - Last Filed: 11/12/17 09:12> Subjective - Date & Time of Evaluation Date of Evaluation: 11/12/17 Time of Evaluation: 07:00 - Subjective Subjective: Medicine progress note for Dr. Lala: Patient was seen and evaluated at bedside. She reported that she was short of breath was associated productive (clear sputum) cough. She denies fever/chills. She states that she has been able to eat without issues. She denied dizziness, headaches, changes in vision, chest pain, abd pain, N/V. She had no other complaints this morning. Objective - Vital Signs/Intake and Output Vital Signs (last 24 hours): Temp Pulse Resp BP Pulse Ox 97.8 F 55 L 20 100/70 98 11/11/17 23:30 11/12/17 04:18 11/11/17 23:30 11/11/17 23:30 11/11/17 23:30 - Medications Medications: Current Medications Al Hydrox/Mg Hydrox/Simethicone (Maalox 30 Ml) 30 ml PO TID PRN PRN Reason: Indigestion / Heartburn Diphenhydramine HCl (Benadryl) 25 mg PO Q6 PRN PRN Reason: Agitation Last Admin: 11/12/17 00:09 Dose: 25 mg Enoxaparin Sodium (Lovenox) 40 mg SC DAILY [facility] Last Admin: 11/11/17 09:14 Dose: Not Given Haloperidol (Haldol) 2 mg PO Q6H PRN PRN Reason: Agitation Hydralazine HCl (Apresoline) 10 mg IVP Q6H PRN PRN Reason: Systolic Blood Pressure Last Admin: 11/11/17 08:18 Dose: 10 mg Sodium Chloride (Sodium Chloride 0.9%) 1,000 mls @ 100 mls/hr IV .Q10H [facility] Last Admin: 11/12/17 06:23 Dose: 100 mls/hr Loperamide HCl (Imodium) 2 mg PO Q8 PRN PRN Reason: Diarrhea Metoclopramide HCl (Reglan) 10 mg IVP Q6H PRN PRN Reason: Nausea/Vomiting Ondansetron HCl (Zofran Inj) 4 mg IVP Q4H PRN PRN Reason: Nausea/Vomiting Pantoprazole Sodium (Protonix Inj) 40 mg IVP DAILY [facility] Last Admin: 11/11/17 09:10 Dose: 40 mg Pneumococcal Polyvalent Vaccine (Pneumovax 23 Vaccine) 0.5 ml IM .ONCE ONE Stop: 11/13/17 10:01 - Labs Labs: 11/11/17 11:49 11/11/17 11:49 - Constitutional Appears: Non-toxic, No Acute Distress - Head Exam Head Exam: NORMAL INSPECTION - Eye Exam Eye Exam: EOMI - ENT Exam ENT Exam: Mucous Membranes Moist - Respiratory Exam Respiratory Exam: Decreased Breath Sounds, Rhonchi, Wheezes, NORMAL BREATHING PATTERN. absent: Accessory Muscle Use, Respiratory Distress, Stridor - Cardiovascular Exam Cardiovascular Exam: REGULAR RHYTHM, +S1, +S2 - GI/Abdominal Exam GI & Abdominal Exam: Soft, Normal Bowel Sounds. absent: Distended, Firm, Guarding, Tenderness - Extremities Exam Extremities Exam: Normal Inspection - Back Exam Back Exam: NORMAL INSPECTION. absent: CVA tenderness (L), CVA tenderness (R), paraspinal tenderness - Neurological Exam Neurological Exam: Alert, Awake, Oriented x3 - Psychiatric Exam Psychiatric exam: Normal Affect, Normal Mood - Skin Skin Exam: Dry, Intact, Normal Color, Warm Assessment and Plan - Assessment and Plan (Free Text) Assessment: Opioid Use disorder/Opioid Withdrawal -Monitor on telemetry -UTOX positive for opioids, Alcohol level <10 -Diet advanced to regular -Methadone 20mg x 1 dose on 11/11, will see how patient is today before dosing with methadone -Clonidine discontinued as patient was having low BPs -Ativan 2mg Q4H IVP prn agitation -Placed on 1:1 observation -Psych consulted, f/u recommendations Shortness of breath Patient wheezing and rhonchi on exam O2 sat 94% NC prn Duonebs Q6 BRIANDA phenergen prn cough f/u Chest X ray Patient is afebrile, normal WBC Acute Pili Patient was calm this morning in bed -Psych consulted yesterday, f/u recommendations: Loperamide 2mg PO Q8 prn Clonidine 0.1mg PO QID Halodol 2mg PO q6 prn and Benadryl 25mg PO Q6 prn for agitation and combative behavior. Hold these medications if SBP< 90 mmhg Hypertension -Patient has been slightly hypotensive -Was given NS boluses yesterday -Clonidine discontinued -Hydralazine 10mg IVP prn sbp > 160 -Continue to monitor Possible Seizure disorder -Patient states that she takes Dilantin 300mg daily -Patient is currently unreliable and cannot confirm medications with pharmacy -Will monitor at this time -Seizure precautions -Aspiration precautions Prophylactic Measures Protonix 40mg IVP daily Lovenox 40mg SC daily NS at 100 cc/hour <Dino Lala H - Last Filed: 11/12/17 10:36> Objective - Vital Signs/Intake and Output Vital Signs (last 24 hours): Temp Pulse Resp BP Pulse Ox 98.1 F 76 20 110/75 94 L 11/12/17 07:00 11/12/17 08:15 11/12/17 07:00 11/12/17 07:00 11/12/17 07:00 Intake and Output: 11/12/17 11/12/17 06:59 18:59 Intake Total 920 Balance 920 - Medications Medications: Current Medications Al Hydrox/Mg Hydrox/Simethicone (Maalox 30 Ml) 30 ml PO TID PRN PRN Reason: Indigestion / Heartburn Albuterol/Ipratropium (Duoneb 3 Mg/0.5 Mg (3 Ml) Ud) 3 ml INH RQ6 BRIANDA Diphenhydramine HCl (Benadryl) 25 mg IVP Q12 PRN PRN Reason: Agitation Enoxaparin Sodium (Lovenox) 40 mg SC DAILY [facility] Last Admin: 11/12/17 10:06 Dose: 40 mg Haloperidol (Haldol) 2 mg PO Q6H PRN PRN Reason: 2nd line - Agitation Hydralazine HCl (Apresoline) 10 mg IVP Q6H PRN PRN Reason: Systolic Blood Pressure Last Admin: 11/11/17 08:18 Dose: 10 mg Sodium Chloride (Sodium Chloride 0.9%) 1,000 mls @ 100 mls/hr IV .Q10H [facility] Last Admin: 11/12/17 06:23 Dose: 100 mls/hr Loperamide HCl (Imodium) 2 mg PO Q8 PRN PRN Reason: Diarrhea Metoclopramide HCl (Reglan) 10 mg IVP Q6H PRN PRN Reason: Nausea/Vomiting Ondansetron HCl (Zofran Inj) 4 mg IVP Q4H PRN PRN Reason: Nausea/Vomiting Pantoprazole Sodium (Protonix Inj) 40 mg IVP DAILY [facility] Last Admin: 11/12/17 10:06 Dose: 40 mg Pneumococcal Polyvalent Vaccine (Pneumovax 23 Vaccine) 0.5 ml IM .ONCE ONE Stop: 11/13/17 10:01 Promethazine HCl (Phenergan Syrup) 12.5 mg PO Q6 PRN PRN Reason: Cough Last Admin: 11/12/17 08:30 Dose: 12.5 mg - Labs Labs: 11/11/17 11:49 11/11/17 11:49 Attending/Attestation - Attestation I have personally seen and examined this patient.: Yes I have fully participated in the care of the patient.: Yes I have reviewed all pertinent clinical information, including history, physical exam and plan: Yes Notes (Text): Medical attending: Patient was seen and examined by me. Agree with the above note by the resident She had a rough day yesterday - she was in the hallways upset that she had lost some of her belongings when she was brought to the hospital. Also yesterday had some low BP readings as well. Despite these low BP readings she was able to ambulate and had to be verbally redirected. We stopped the ativan as well as the clondine yesterday because of the low BPs. There is an order for haldol that is PRN however if she gets agitated again or tries to throw water at people we will try to use IV benadryl to see if she will calm down. The question is does she still need methadone. This morning when I saw at about 9:00 AM she was awake and talking to me (not happy with me) but she appeared stable and cooperative. So because of the low BP numbers we will probably deffer from giving methadone. thank you Dino Lala
[2017-11-12] MEDS ORDERED: Albuterol-Ipratrop 3 mg / 0.5 (3 ml) UD INH STA (07:57)
[2017-11-12] MEDS ORDERED: DiphenhydrAMINE 50 mg/ml Inj IVP PRN (08:34)
[2017-11-12] MEDS ORDERED: Promethazine 12.5 mg/10 ml Syrup PO PRN (09:00)
[2017-11-12] MEDS: Enoxaparin 40 mg Syringe SC SCH (10:06)
--- NOTE | 2017-11-12 10:51 | RAD ---
HISTORY: wheezing, sob COMPARISON: No prior. FINDINGS: LUNGS: There are linear opacity at the right more than left lung bases may represent atelectasis or scar tissue. The possibility of pneumonia is less likely. PLEURA: No significant pleural effusion identified, no pneumothorax apparent. CARDIOVASCULAR: Normal. OSSEOUS STRUCTURES: No significant abnormalities. VISUALIZED UPPER ABDOMEN: Normal. OTHER FINDINGS: None. IMPRESSION: For central linear opacities at the lung bases right more than left may represent atelectasis or scar tissue. The possibility of pneumonia is less likely.
[2017-11-12] MEDS: Albuterol-Ipratrop 3 mg / 0.5 (3 ml) UD INH SCH ×2 (13:29→19:40)
[2017-11-12 16:44] LABS: BASO % 0.4 % (0.0-2.0); EOS # 0.2 K/uL (0.0-0.7); EOS % 3.6 % (0.0-4.0); LYMPH # 2.4 K/uL (1.0-4.3); LYMPH % 35.4 % (20.0-40.0); MEAN CELL VOLUME 93.1 fL (81.0-99.0); MEAN CORPUSCULAR HGB CONC 33.2 g/dL (33.0-37.0); MEAN PLATELET VOLUME 8.6 fL (7.2-11.7); MONO # 0.5 K/uL (0.0-0.8); MONO % 6.7 % (0.0-10.0); NEUT # 3.7 K/uL (1.8-7.0); NEUT % 53.9 % (50.0-75.0); RBC 4.25 Mil/uL (3.80-5.20); RED CELL DISTRIBUTION WIDTH 13.9 % (11.5-14.5); WHITE BLOOD COUNT 6.8 K/uL (4.8-10.8)
[2017-11-12 16:45] LABS: HEMOGLOBIN 13.1 g/dL (11.0-16.0)
[2017-11-12 16:55] LABS: ALB/GLOB RATIO 0.8 (1.0-2.1); CALCIUM 7.5 mg/dl (8.6-10.4); MAGNESIUM 1.7 mg/dL (1.6-2.3)
--- NOTE | 2017-11-12 17:06 | PCM.PYCHPN ---
Psychiatric Progress Note - Psychiatric Progress Note Patient seen today, length of contact: 15 minutes Patient Chief Complaint: i am not suicidal. i just want to detox from heroin Problems Identified/Issues Discussed: opioid eithdrawal symptoms Medical Problems: hyperteson Diagnostic Results: reviewed DSM 5 Symptoms Update: mylaglias Medication Change: No (Haldol 2mg PO prn and Benadryl 25mg PO PRN ) Medical Record Reviewed: Yes Mental Status Examination - Cognitive Function Memory: Intact Attention: WNL Concentration: WNL Association: WNL Fund of Knowledge: WNL - Mood Mood: Anxious - Affect Affect: Constricted - Speech Speech: Appropriate, Slurred, Loud - Formal Thought Process Formal Thought Process: No Impairment - Suicidal Ideation Suicidal Ideation: No - Homicidal Ideation Homicidal Ideation: No Goal/Treatment Plan - Goal/Treatment Plan Need for Continued Stay: Remain at risks for inpatient hospitalization, Discharge may exacerbated symptoms Progress Toward Problem(s) and Goals/Treatment Plan: pt ns not suicidal p[t has blood pressure that is normalizing - Smoking Cessation Smoking Cessation Initiated: No
[2017-11-13] MEDS: Albuterol-Ipratrop 3 mg / 0.5 (3 ml) UD INH SCH ×4 (01:13→19:58)
[2017-11-13] MEDS: Sodium Chloride 0.9% 1,000 ML IV SCH (01:38)
--- NOTE | 2017-11-13 08:07 | CP.PCM.PN ---
<Martha Vidal - Last Filed: 11/13/17 08:05> Subjective - Date & Time of Evaluation Date of Evaluation: 11/13/17 Time of Evaluation: 07:00 - Subjective Subjective: Medicine progress note for Dr. Lala: Patient was seen and evaluated at bedside. She denies fever/chills. She states that she has been able to eat without issues. She denied dizziness, headaches, changes in vision, chest pain, abd pain, N/V. She had no other complaints this morning. Objective - Vital Signs/Intake and Output Vital Signs (last 24 hours): Temp Pulse Resp BP Pulse Ox 98.3 F 85 18 144/98 H 98 11/13/17 06:11 11/13/17 06:11 11/13/17 06:11 11/13/17 06:11 11/13/17 06:11 Intake and Output: 11/13/17 11/13/17 06:59 18:59 Intake Total 118 Balance 118 - Medications Medications: Current Medications Al Hydrox/Mg Hydrox/Simethicone (Maalox 30 Ml) 30 ml PO TID PRN PRN Reason: Indigestion / Heartburn Albuterol/Ipratropium (Duoneb 3 Mg/0.5 Mg (3 Ml) Ud) 3 ml INH RQ6 BRIANDA Last Admin: 11/13/17 07:00 Dose: 3 ml Diphenhydramine HCl (Benadryl) 25 mg IVP Q12 PRN PRN Reason: Agitation Enoxaparin Sodium (Lovenox) 40 mg SC DAILY [facility] Last Admin: 11/12/17 10:06 Dose: 40 mg Haloperidol (Haldol) 2 mg PO Q6H PRN PRN Reason: 2nd line - Agitation Hydralazine HCl (Apresoline) 10 mg IVP Q6H PRN PRN Reason: Systolic Blood Pressure Last Admin: 11/11/17 08:18 Dose: 10 mg Sodium Chloride (Sodium Chloride 0.9%) 1,000 mls @ 150 mls/hr IV .Q6H40M [facility] Last Admin: 11/13/17 01:38 Dose: Not Given Loperamide HCl (Imodium) 2 mg PO Q8 PRN PRN Reason: Diarrhea Metoclopramide HCl (Reglan) 10 mg IVP Q6H PRN PRN Reason: Nausea/Vomiting Ondansetron HCl (Zofran Inj) 4 mg IVP Q4H PRN PRN Reason: Nausea/Vomiting Pantoprazole Sodium (Protonix Ec Tab) 40 mg PO DAILY BRIANDA Pneumococcal Polyvalent Vaccine (Pneumovax 23 Vaccine) 0.5 ml IM .ONCE ONE Stop: 11/13/17 10:01 Promethazine HCl (Phenergan Syrup) 12.5 mg PO Q6 PRN PRN Reason: Cough Last Admin: 11/12/17 08:30 Dose: 12.5 mg - Labs Labs: 11/12/17 16:32 11/12/17 16:32 - Constitutional Appears: Non-toxic, No Acute Distress - Head Exam Head Exam: NORMAL INSPECTION - Eye Exam Eye Exam: EOMI - ENT Exam ENT Exam: Mucous Membranes Moist - Respiratory Exam Respiratory Exam: NORMAL BREATHING PATTERN. absent: Accessory Muscle Use, Rales , Rhonchi, Wheezes, Respiratory Distress - Cardiovascular Exam Cardiovascular Exam: REGULAR RHYTHM, +S1, +S2 - GI/Abdominal Exam GI & Abdominal Exam: Soft, Normal Bowel Sounds. absent: Distended, Firm, Guarding, Tenderness - Extremities Exam Extremities Exam: Normal Inspection. absent: Calf Tenderness - Back Exam Back Exam: NORMAL INSPECTION - Neurological Exam Neurological Exam: Alert, Awake, CN II-XII Intact, Normal Gait, Oriented x3 - Psychiatric Exam Psychiatric exam: Normal Affect, Normal Mood - Skin Skin Exam: Dry, Intact, Normal Color, Warm Assessment and Plan - Assessment and Plan (Free Text) Assessment: Opioid Use disorder/Opioid Withdrawal -Monitor on telemetry -UTOX positive for opioids, Alcohol level <10 -Diet advanced to regular -Methadone 20mg x 1 dose on 11/11, will see how patient is today before dosing with methadone -Clonidine discontinued as patient was having low BPs -Ativan 2mg Q4H IVP prn agitation -Placed on 1:1 observation -Psych consulted, f/u recommendations Shortness of breath Patient wheezing and rhonchi on exam O2 sat 94% NC prn Duonebs Q6 BRIANDA phenergen prn cough f/u Chest X ray Patient is afebrile, normal WBC ESMER Cr treandin up 1.3 yesterday NS fluid was increased to 150cc/hour Acute Pili Patient was calm this morning in bed -Psych consulted yesterday, f/u recommendations: Loperamide 2mg PO Q8 prn Clonidine 0.1mg PO QID Halodol 2mg PO q6 prn and Benadryl 25mg PO Q6 prn for agitation and combative behavior. Hold these medications if SBP< 90 mmhg Hypertension -Patient has been slightly hypotensive -Was given NS boluses yesterday -Clonidine discontinued -Hydralazine 10mg IVP prn sbp > 160 -Continue to monitor Possible Seizure disorder -Patient states that she takes Dilantin 300mg daily -Patient is currently unreliable and cannot confirm medications with pharmacy -Will monitor at this time -Seizure precautions -Aspiration precautions Prophylactic Measures Protonix 40mg IVP daily Lovenox 40mg SC daily NS at 100 cc/hour <Dino Lala - Last Filed: 11/13/17 08:51> Objective - Vital Signs/Intake and Output Vital Signs (last 24 hours): Temp Pulse Resp BP Pulse Ox 98.1 F 76 20 131/86 97 11/13/17 07:00 11/13/17 07:00 11/13/17 07:00 11/13/17 07:00 11/13/17 07:00 Intake and Output: 11/13/17 11/13/17 06:59 18:59 Intake Total 118 Balance 118 - Medications Medications: Current Medications Al Hydrox/Mg Hydrox/Simethicone (Maalox 30 Ml) 30 ml PO TID PRN PRN Reason: Indigestion / Heartburn Albuterol/Ipratropium (Duoneb 3 Mg/0.5 Mg (3 Ml) Ud) 3 ml INH RQ6 BRIANDA Last Admin: 11/13/17 07:00 Dose: 3 ml Diphenhydramine HCl (Benadryl) 25 mg IVP Q12 PRN PRN Reason: Agitation Enoxaparin Sodium (Lovenox) 40 mg SC DAILY [facility] Last Admin: 11/12/17 10:06 Dose: 40 mg Haloperidol (Haldol) 2 mg PO Q6H PRN PRN Reason: 2nd line - Agitation Hydralazine HCl (Apresoline) 10 mg IVP Q6H PRN PRN Reason: Systolic Blood Pressure Last Admin: 11/11/17 08:18 Dose: 10 mg Sodium Chloride (Sodium Chloride 0.9%) 1,000 mls @ 150 mls/hr IV .Q6H40M [facility] Last Admin: 11/13/17 01:38 Dose: Not Given Loperamide HCl (Imodium) 2 mg PO Q8 PRN PRN Reason: Diarrhea Methadone HCl (Methadone) 10 mg PO STAT STA Stop: 11/13/17 08:47 Metoclopramide HCl (Reglan) 10 mg IVP Q6H PRN PRN Reason: Nausea/Vomiting Ondansetron HCl (Zofran Inj) 4 mg IVP Q4H PRN PRN Reason: Nausea/Vomiting Pantoprazole Sodium (Protonix Ec Tab) 40 mg PO DAILY [facility] Pneumococcal Polyvalent Vaccine (Pneumovax 23 Vaccine) 0.5 ml IM .ONCE ONE Stop: 11/13/17 10:01 Promethazine HCl (Phenergan Syrup) 12.5 mg PO Q6 PRN PRN Reason: Cough Last Admin: 11/12/17 08:30 Dose: 12.5 mg - Labs Labs: 11/12/17 16:32 11/12/17 16:32 Attending/Attestation - Attestation I have personally seen and examined this patient.: Yes I have fully participated in the care of the patient.: Yes I have reviewed all pertinent clinical information, including history, physical exam and plan: Yes Notes (Text): Medical attending: Patient was seen and examined by me. The patient was actually cooperative and also calm this morning. She was NOT combative and answering questions appropriately On exam I walked her into the hallway and she did NOT have chest pain or shortness of breath. She also denied dizziness when she stood up and walked She reports a lot of watery BMs and also abdominal tenderness - so will give methadone 10mg x 1. We had held up the clonodine, trazadone, and methadone due to low BP readings. Since then the BPs have been ok. I explained to the patient she might be DC tommorow. thank you Dino Lala
[2017-11-13 08:42] VITALS: RESP 20
[2017-11-13] MEDS ORDERED: Pneumococcal 23-Valent Vaccine IM ONE (10:00)
[2017-11-13] MEDS ORDERED: Influenza Vaccine 60 mcg/0.5 mL SYR (4YR UP) IM ONE (10:00)
[2017-11-13] MEDS: Pantoprazole 40 mg EC Tab PO SCH (10:41)
[2017-11-13] MEDS: Enoxaparin 40 mg Syringe SC SCH (10:44)
[2017-11-14] MEDS: Albuterol-Ipratrop 3 mg / 0.5 (3 ml) UD INH SCH ×2 (01:20→06:50)
[2017-11-14 08:17] VITALS: BP 136/90; PULSE 67; TEMP 98.5; O2SAT 100
--- NOTE | 2017-11-14 08:44 | CP.PCM.DIS ---
Provider - Provider Date of Admission: 11/10/17 08:19 Attending physician: Dino Lala DO Consults: Psychiatry ~ Dr Trotter Time Spent in preparation of Discharge (in minutes): 29 Hospital Course - Lab Results Lab Results: Most Recent Lab Values WBC 6.8 K/uL (4.8-10.8) 11/12/17 16:32 RBC 4.25 Mil/uL (3.80-5.20) 11/12/17 16:32 Hgb 13.1 g/dL (11.0-16.0) D 11/12/17 16:32 Hct 39.5 % (34.0-47.0) 11/12/17 16:32 MCV 93.1 fL (81.0-99.0) 11/12/17 16:32 MCH 31.0 pg (27.0-31.0) 11/12/17 16:32 MCHC 33.2 g/dL (33.0-37.0) 11/12/17 16:32 RDW 13.9 % (11.5-14.5) 11/12/17 16:32 Plt Count 174 K/uL (130-400) 11/12/17 16:32 MPV 8.6 fL (7.2-11.7) 11/12/17 16:32 Neut % (Auto) 53.9 % (50.0-75.0) 11/12/17 16:32 Lymph % (Auto) 35.4 % (20.0-40.0) 11/12/17 16:32 [place] % (Auto) 6.7 % (0.0-10.0) 11/12/17 16:32 Eos % (Auto) 3.6 % (0.0-4.0) 11/12/17 16:32 Baso % (Auto) 0.4 % (0.0-2.0) 11/12/17 16:32 Neut # 3.7 K/uL (1.8-7.0) 11/12/17 16:32 Lymph # 2.4 K/uL (1.0-4.3) 11/12/17 16:32 [place] # 0.5 K/uL (0.0-0.8) 11/12/17 16:32 Eos # 0.2 K/uL (0.0-0.7) 11/12/17 16:32 Baso # 0.0 K/uL (0.0-0.2) 11/12/17 16:32 Sodium 136 mmol/L (132-148) 11/12/17 16:32 Potassium 3.9 mmol/L (3.6-5.2) 11/12/17 16:32 Chloride 108 mmol/L (98-107) H 11/12/17 16:32 Carbon Dioxide 22 mmol/L (22-30) 11/12/17 16:32 Anion Gap 10 (10-20) 11/12/17 16:32 BUN 13 mg/dL (7-17) 11/12/17 16:32 Creatinine 1.3 mg/dL (0.7-1.2) H 11/12/17 16:32 Est GFR ( Amer) 52 11/12/17 16:32 Est GFR (Non-Af Amer) 43 11/12/17 16:32 POC Glucose (mg/dL) 72 mg/dL (65-110) 11/14/17 06:24 Random Glucose 104 mg/dL (65-105) 11/12/17 16:32 Calcium 7.5 mg/dl (8.6-10.4) L 11/12/17 16:32 Phosphorus 3.6 mg/dL (2.5-4.5) 11/12/17 16:32 Magnesium 1.7 mg/dL (1.6-2.3) 11/12/17 16:32 Total Bilirubin 0.5 mg/dL (0.2-1.3) 11/12/17 16:32 AST 22 U/L (14-36) 11/12/17 16:32 ALT 24 U/L (9-52) 11/12/17 16:32 Alkaline Phosphatase 53 U/L (38-126) 11/12/17 16:32 Total Protein 6.6 g/dL (6.3-8.3) 11/12/17 16:32 Albumin 3.0 g/dL (3.5-5.0) L D 11/12/17 16:32 Globulin 3.6 gm/dL (2.2-3.9) 11/12/17 16:32 Albumin/Globulin Ratio 0.8 (1.0-2.1) L 11/12/17 16:32 Urine Color Yellow (YELLOW) 11/10/17 07:24 Urine Clarity Hazy (Clear) 11/10/17 07:24 Urine pH 8.0 (5.0-8.0) 11/10/17 07:24 Ur Specific Jackson 1.021 (1.003-1.030) 11/10/17 07:24 Urine Protein 2+ mg/dL (NEGATIVE) H 11/10/17 07:24 Urine Glucose (UA) 1+ mg/dL (Normal) 11/10/17 07:24 Urine Ketones Negative mg/dL (NEGATIVE) 11/10/17 07:24 Urine Blood Negative (NEGATIVE) 11/10/17 07:24 Urine Nitrate Negative (NEGATIVE) 11/10/17 07:24 Urine Bilirubin Negative (NEGATIVE) 11/10/17 07:24 Urine Urobilinogen Normal mg/dL (0.2-1.0) 11/10/17 07:24 Ur Leukocyte Esterase Neg Tracie/uL (Negative) 11/10/17 07:24 Urine WBC (Auto) 4 /hpf (0-5) 11/10/17 07:24 Urine RBC (Auto) 8 /hpf (0-3) H 11/10/17 07:24 Ur Squamous Epith Cells 1 /hpf (0-5) 11/10/17 07:24 Amorphous Sediment Rare /ul (<OCC) H 11/10/17 07:24 Urine Bacteria Occ (<OCC) H 11/10/17 07:24 Urine Opiates Screen Positive (NEGATIVE) H 11/10/17 07:24 Urine Methadone Screen Negative (NEGATIVE) 11/10/17 07:24 Ur Barbiturates Screen Negative (NEGATIVE) 11/10/17 07:24 Ur Phencyclidine Scrn Negative (NEGATIVE) 11/10/17 07:24 Ur Amphetamines Screen Negative (NEGATIVE) 11/10/17 07:24 U Benzodiazepines Scrn Negative (NEGATIVE) 11/10/17 07:24 U Oth Cocaine Metabols Negative (NEGATIVE) 11/10/17 07:24 U Cannabinoids Screen Negative (NEGATIVE) 11/10/17 07:24 Alcohol, Quantitative < 10 mg/dl (0-10) 11/10/17 05:43 Influenza Typ A,B (EIA) Negative for flu a/b (NEGATIVE) 11/12/17 09:57 - Hospital Course Hospital Course: Patient was seen and examined by me She had methadone 10mg x 1 yesterday and she is no longer having withdrawl symptoms. Last night she was observed walking and ambulating without difficulty The patient reported some minimal abdominal pain. Denied chest pain, denied nausea, denied vommitting. She was able to tolerate her diet. Bathroom ok. As mentioned previously this is a 51 year old female who came to the ER on with acute agitation and heroine abuse. The patient then had low BP on 11/11 however was asymptomatic. We had to hold a lot of medications that had sedation affects and give IVF. She did well. The next day on 11/12 and 11/13 her BP was stable and she was able to get smaller doses of methadone. Discharge Exam - Head Exam Head Exam: NORMAL INSPECTION - Eye Exam Eye Exam: EOMI, Normal appearance - ENT Exam ENT Exam: Mucous Membranes Moist - Respiratory Exam Respiratory Exam: Clear to PA & Lateral, NORMAL BREATHING PATTERN, UNREMARKABLE - Cardiovascular Exam Cardiovascular Exam: REGULAR RHYTHM - GI/Abdominal Exam GI & Abdominal Exam: Normal Bowel Sounds, Unremarkable. absent: Diminished Bowel Sounds, Distended, Firm, Guarding, Hernia - Neurological Exam Neurological exam: Alert, Normal Gait, Oriented x3 - Psychiatric Exam Psychiatric exam: Normal Affect, Normal Mood - Skin Skin Exam: Normal Color, Warm Discharge Plan - Follow Up Plan Condition: UNKNOWN Disposition: HOME/ ROUTINE
[2017-11-14] MEDS: Pantoprazole 40 mg EC Tab PO SCH (09:10)
[2017-11-14] MEDS: Enoxaparin 40 mg Syringe SC SCH (09:13)
--- NOTE | 2017-11-15 20:12 | CARD ---
APPROVED REPORT EKG Measurement Heart [id number] <Conclusion> Sinus rhythm with marked sinus arrhythmia Moderate voltage criteria for LVH, may be normal variant Borderline ECG
== END 2017-11-14 11:54 | disposition home or self-care (01) | DRG 745 ==
LOC: C.ER 05:11 → C.9E 08:19 → C.6T 11:42
PROVIDERS: ADMIT Hospitalist; ATTEND Hospitalist
PROC: HZ2ZZZZ Detoxification Services for Substance Abuse Treatment (ICD-10-PCS; principal; 2017-11-10)
PROC: HZ56ZZZ Individual Psychotherapy for Substance Abuse Treatment, Psychoeducation (ICD-10-PCS; 2017-11-10)
PROC: HZ59ZZZ Individual Psychotherapy for Substance Abuse Treatment, Supportive (ICD-10-PCS; 2017-11-10)
DX: F11.23 Opioid dependence with withdrawal (principal); F31.9 Bipolar disorder, unspecified; G40.909 Epilepsy, unspecified, not intractable, without status epilepticus; I10 Essential (primary) hypertension; R41.0 Disorientation, unspecified; R06.02 Shortness of breath; R06.2 Wheezing